=== PATIENT | male | born 1990 | race African-American/Black ===

== ENCOUNTER 2025-01-28 08:42 | Emergency (ER) | payer OTHER, SELFPAY ==
[2025-01-28 09:00] VITALS: BP 138/69; PULSE 56; RESP 18; TEMP 36.8; O2SAT 98; BMI 29.7
--- NOTE | 2025-01-28 09:10 | XR_ITS ---
Examination: CT brain head without contrast. 2-D sagittal coronal reconstructions Date and time of exam: January 28, 2025, 0954 hours INDICATIONS: Headaches beginning 2 days ago CTDI: vol (mGy): 52.4 DLP: (mGycm): 1030 Technique: Multiple CT axial sections of the brain have been obtained, 5 mm slice thickness. Contrast has not been administered. 2-D sagittal, coronal reconstructions have been obtained Low dose protocols were performed. One or more of the following dose reduction techniques were used; automated exposure control, adjustment of the mA and/or KV according to patient size, use of iterative reconstruction technique. Findings: No significant ventricular enlargement. Intra-axial or extra-axial hemorrhage density is not seen. No mass effect or midline shift Basal cisterns are not remarkable. Fourth ventricle is midline. Cranial vault intact. Impression: Negative for acute hemorrhage, mass effect or midline shift Advise clinical correlation and follow-up accordingly
--- NOTE | 2025-01-28 09:11 | PD.EDRME ---
Rapid Medical Screening Exam RME Arrival date/time: 01/28/25 08:42 34-year-old male presents to the Emergency Department today for complaints of headache Chief Complaint: Headache Vital signs: Vital Signs Temperature 98.2 F 01/28/25 09:00 Pulse Rate 56 L 01/28/25 09:00 Respiratory Rate 18 01/28/25 09:00 Blood Pressure 138/69 H 01/28/25 09:00 Pulse Oximetry (%) 98 01/28/25 09:00 Oxygen Delivery Method Room Air 01/28/25 09:00 Vital signs reviewed by provider: Yes Exam: On exam well-appearing does not appear ill or toxic patient GCS of 15 no acute neurologic abnormality noted Clinical Impression: Lab work and imaging ordered
[2025-01-28 10:15] LABS: Basophils # (Auto) 0.0 Thou/mm3 (0.0-0.2); Basophils % (Auto) 0 % (0-2.5); Eosinophils # (Auto) 0.0 Thou/mm3 (0.0-0.5); Eosinophils % (Auto) 0 % (0-10); Hematocrit 41.0 % (41.0-53.0); Hemoglobin 13.8 g/dL (13.5-16.0); Immature Granulocytes Auto 0.01 Thou/mm3 (0.00-0.00); Lymphocytes # (Auto) 2.1 Thou/mm3 (1.0-4.8); Lymphocytes % (Auto) 38 % (10-50); Mean Corpuscular HGB Conc 33.7 g/dl (31.0-37.0); Mean Corpuscular Hemoglobin 29.8 pg (25.0-35.0); Mean Corpuscular Volume 89 fL (80-100); Monocytes # (Auto) 0.5 Thou/mm3 (0.0-0.8); Monocytes % (Auto) 9 % (0-12); Neutrophils # (Auto) 2.8 Thou/mm3 (1.8-7.7); Neutrophils % (Auto) 52 % (37-80); Nucleated Red Blood Cell # 0.00 Thou/mm3 (0.00-0.00); Nucleated Red Blood Cell % 0 /100 WBC (0); Platelet Count 189 Thou/mm3 (140-440); RDW Standard Deviation 40.6 fL (35.1-43.9); Red Blood Count 4.63 Miln/mm3 (4.50-5.90); White Blood Count 5.4 Thou/mm3 (3.8-10.6)
[2025-01-28 10:31] LABS: Alanine Aminotransferase 20 U/L (10-49); Albumin, Serum 4.9 gm/dL (3.5-5.0); Albumin/Globulin Ratio 2.1 (1.2-2.2); Alkaline Phosphatase 64 U/L (46-116); Anion Gap 7 (7-16); Aspartate Amino Transferase 28 U/L (0-34); BUN/Creatinine Ratio 13 Ratio (12-20); Bilirubin,Total 0.5 mg/dL (0.3-1.2); Blood Urea Nitrogen 15 mg/dL (9-23); Calcium 9.4 mg/dL (8.3-10.6); Calcium (Corrected) 9.4 mg/dL (8.5-10.1); Carbon Dioxide 27.6 mMol/L (20.0-31.0); Chloride 105 mMol/L (98-107); Creatinine (Component) 1.2 mg/dL (0.6-1.3); Estimated Creatinine Clearance 111.1 mL/min (>60); Globulin 2.3 gm/dL (2.3-3.5); Glucose 92 mg/dL (74-106); Osmolality,Calculated 280 (275-295); Potassium 4.2 mMol/L (3.4-5.1); Sodium 140 mMol/L (136-145); Total Protein 7.2 gm/dL (5.7-8.2); eGFR > 60 See Note
[2025-01-28 11:13] VITALS: BP 147/96; PULSE 42; RESP 18; TEMP 36.8; O2SAT 100
--- NOTE | 2025-01-28 12:16 | PD.EDHA ---
ED Headache RME/HPI General Chief Complaint: Headache Stated Complaint: Left side pain in head X 2 days Time Seen by Provider: 01/28/25 11:18 Arrival date/time: 01/28/25 08:42 34-year-old male patient with no past medical history, came in for evaluation regarding headache. Been having left-sided headache for the last 2 days, described as pulsating, initially mild. 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 Patient denies any trauma to the head denies any fall denies any upper or lower extremity weakness denies any slurring of speech patient is ambulatory. Patient did not take anything for the headache. Patient denies any neck pain denies any fever. No vomiting no dizziness. No blurry vision. RME / HPI RME / HPI Narrative: 01/28/25 08:42 34-year-old male presents to the Emergency Department today for complaints of headache Exam: On exam well-appearing does not appear ill or toxic patient GCS of 15 no acute neurologic abnormality noted Impression: Lab work and imaging ordered Related Data Allergies Allergy/AdvReac Type Severity Reaction Status Date / Time No Known Drug Allergies Allergy Verified 01/28/25 08:47 Review of Systems Review of Systems Narrative Review of Systems: Review of system reviewed and within normal limits except mentioned in HPI ED Exam Narrative Physical exam: VITAL SIGNS: Reviewed. GENERAL APPEARANCE: Alert and interactive, follows commands, no acute distress, HEAD AND FACE: Non-traumatic. ENT: PERRL, pink conjunctivitis, eyelid no trauma, Mucous membrane moist. NECK: Supple, nontender, no nuchal rigidity. CHEST: No tenderness, no crepitus, no paradoxical movement, no retractions. LUNGS: Clear, well ventilated, symmetric, no rales, no wheezing, no ronchi, no stridor, good breath sounds bilaterally. HEART: Regular rate, regular rhythm, no murmur, no gallops. ABDOMEN: Soft, positive bowel sounds, nondistended, no guarding, nontender, no rebound, no masses, RECTAL: Deferred. GENITAL: Deferred. NEUROLOGICAL: Gross motor function intact sensory function intact, Appropriate for age. MUSCULOSKELETAL: low back nontender, full range of motion. EXTREMITIES: Nontender, full range of motion. SKIN: Color pink, dry, no rash, no lacerations, no abrasions, no contusions. LYMPHATICS: Deferred. Course Quality Measures none Orders Category Date Time Status CT head/brain wo con Stat Exams 01/28/25 09:10 Completed CBC Stat Lab 01/28/25 10:01 Completed CMP [Comprehensive Metabolic Panel] Stat Lab 01/28/25 10:01 Completed Ketorolac Inj [Toradol Inj] Med 01/28/25 12:15 Once 30 mg IM X1 ONE Vital Signs Vital signs: Vital Signs Temperature 98.2 F 01/28/25 09:00 Pulse Rate 56 L 01/28/25 09:00 Respiratory Rate 18 01/28/25 09:00 Blood Pressure 138/69 H 01/28/25 09:00 Pulse Oximetry (%) 98 01/28/25 09:00 Oxygen Delivery Method Room Air 01/28/25 09:00 Headache MDM Narrative MDM Narrative:: 34-year-old male patient with no past medical history, came in for evaluation regarding headache. Been having left-sided headache for the last 2 days, described as pulsating, initially mild. 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 Patient denies any trauma to the head denies any fall denies any upper or lower extremity weakness denies any slurring of speech patient is ambulatory. Patient did not take anything for the headache. Patient denies any neck pain denies any fever. No vomiting no dizziness. No blurry vision. CT scan of the head came back unremarkable. Patient's workup also came back normal. Patient's blood pressure was noted to be slightly elevated on my initial appreciation as 161/58. Patient was advised to see PCP regarding monitoring of blood pressure which could be the reason for his headache. I also advised him to take [id number] Tylenol Motrin as needed for headache. Patient stable for discharge Patient data External records reviewed:: None Clinical information provided by:: patient Social determinants that could affect healthcare access:: none Patient has the following chronic illnesses:: None How is presenting disease/condition affected by chronic disease/condition?: no chronic disease Evaluation data The following diagnostics were reviewed and interpreted by me:: lab results and radiology exam(s) Lab and/or radiology exams considered but not ordered:: None Interpretation Summary: See above Medications / Prescriptions Medications or Prescriptions considered but not ordered:: None Medication administrations:: Medication Administration History Ketorolac Tromethamine (Ketorolac Inj 30 Mg/Ml Vial) 30 mg IM X1 ONE Stop: 01/28/25 12:16 Toradol x 1 Consultations Consultation(s) initiated? (list below): No Diagnosis Differential diagnosis headache: migraine, tension headache, subarachnoid hemorrhage and headache Most likely diagnosis given after review of the tests above:: Headache Admission Indicated Admission indicated?: not indicated Admission Request Was there a request for admission?: No Disposition Plan Disposition Plan: Discharge Discharge Attestation Discharge Attestation: The patient was given an opportunity to ask questions and understood the discharge instructions. Discharge instructions specifically effects, indications for sooner follow up or return to the emergency department, and the expected course of current diagnosis. Patient condition: Stable Discharge Plan Plan Patient Disposition: HOME (Self Care) Discharge Disposition comment: Stable Prescriptions/Referrals Referrals: No Primary/Family,Physician [Primary Care Provider] - In 1 week Problem List Clinical Impression: Headache Patient/Caregiver Discharge Instructions Discharge Activity: activity as tolerated Education Materials: Self-Care for Headaches Additional Instructions: Thank you for the opportunity for serving you today. You are stable for discharged . You are advised to: Follow-up with your PCP in 1 to 2 days Return to ED for worsening of symptoms Increase oral fluids Take [id number] Tylenol Motrin as needed for headache Monitor your blood pressure for the next 2 weeks, today your blood pressure is slightly elevated Print Language: Divehi Stand Alone Forms: [employer] Award Info., Work/School Release, Patient Portal Info Letter [place]/SHARMIN Supervising Physician [place]MIN Supervising Physician: MD Sharon
[2025-01-28] MEDS: KETOROLAC INJ 30 MG/ML VIAL IM (12:33)
[2025-01-28 12:47] VITALS: BP 147/89; PULSE 56; RESP 16; O2SAT 98
== END 2025-01-28 12:49 | disposition home or self-care (01) ==
PROVIDERS: Nurse Practitioner Primary Care; Emergency Provider Emergency Medicine
DX: R51.9 Headache, unspecified (principal)
CPT/HCPCS: 36415; 70450; 80053; 85025; 96372; 99283; J1885